=== PATIENT | male | born 1945 ===

== ENCOUNTER 2022-08-15 16:23 | Emergency (ER) | payer MEDICARE, BC ==
[~2022-08-15] VITALS: Ht 172.7 cm; Wt 81.8 kg
[2022-08-15 16:26] VITALS: BP 140/91
== END 2022-08-15 16:44 | disposition home or self-care (01) ==
LOC: ER 16:24
DX: Z00.8 Encounter for other general examination (principal); F10.10 Alcohol abuse, uncomplicated; R47.81 Slurred speech; Y90.9 Presence of alcohol in blood, level not specified
CPT/HCPCS: 82948; 99283